=== PATIENT | female | born 1960 | race Caucasian/White ===

== ENCOUNTER → 2016-12-21 | Outpatient (CLI) | payer BC ==
--- NOTE | 2016-12-21 16:13 | US ---
EXAMINATION TYPE: US transvaginal DATE OF EXAM: 12/21/2016 COMPARISON: NONE CLINICAL HISTORY: 56-year-old female N83.292 OVARIAN CYST LEFT. Hx of ovarian cyst. Patient states bl adder not full and wanting the Transvaginal US. Hx of partial hysterectomy. Patient states noticing pain every other month. TECHNIQUE: Multiple transvaginal sonographic images of the pelvis are obtained. FINDINGS: Date of LMP: Uterus removed Right Ovary: 4.1 x 3.5 x 3.7 cm. There seems to be a thin rim of parenchyma around a simple cyst me asuring 40 x 30 x 34 mm. Left Ovary: 1.7 x 1.5 x 1.2 cm with follicular change. Otherwise, no evident adnexal abnormality or cul-de-sac free fluid. IMPRESSION: 1. Status post hysterectomy. 2. A 4.0 cm simple cyst involving the right ovary. Follow-up in 6-8 weeks to reassess. If the finding persists, and the patient is postmenopausal, subsequent surveillance may be indicated.
--- NOTE | 2016-12-22 10:14 | ECHOF ---
Referral Reason:R00.2 PALPITATIONS I34.1 NON MITRIAL VALVE MEASUREMENTS -------- HEIGHT: 157.5 cm WEIGHT: 92.5 kg BP: RVIDd: 2.4 cm (< 3.3) IVSd: 0.8 cm (0.6 - 1.1) LVIDd: 4.1 cm (3.9 - 5.3) LVPWd: 0.9 cm (0.6 - 1.1) IVSs: 1.1 cm LVIDs: 3.7 cm LVPWs: 0.9 cm LA Diam: 2.8 cm (2.7 - 3.8) LAESV Index (A-L): 20.83 ml/m Ao Diam: 3.0 cm (2.0 - 3.7) AV Cusp: 2.0 cm (1.5 - 2.6) LA Diam: 3.2 cm (2.7 - 3.8) MV EXCURSION: 18.221 mm (> 18.000) MV EF SLOPE: 80 mm/s (70 - 150) EPSS: 0.6 cm MV E Lg: 0.58 m/s MV DecT: 252 ms MV A Lg: 0.78 m/s MV E/A Ratio: 0.74 RAP: 5.00 mmHg RVSP: 12.72 mmHg FINDINGS -------- Sinus rhythm. This was a technically adequate study. LV size, wall thickness and systolic function are normal, with an EF greater than 55%. The right ventricle is normal in size. Normal LA size by volume 22+/-6 ml/m2. The right atrial size is normal. The aortic valve is trileaflet, and appears structurally normal. No aortic stenosis or regurgitation. Mild mitral regurgitation is present. Mild prolapse of the anterior mitral valve leaflet. Mild tricuspid regurgitation present. There is no evidence of pulmonary hypertension. The right ventricular systolic pressure, as measured by Doppler, is 12.72mmHg. There is no pulmonic regurgitation present. The aortic root size is normal. There is no pericardial effusion. CONCLUSIONS -------- 1. LV size, wall thickness and systolic function are normal, with an EF greater than 55%. 2. There is no pericardial effusion. 3. The aortic valve is trileaflet, and appears structurally normal. No aortic stenosis or regurgitation. 4. Mild mitral regurgitation is present. 5. Mild prolapse of the anterior mitral valve leaflet. 6. Mild tricuspid regurgitation present. 7. There is no evidence of pulmonary hypertension. 8. The right ventricular systolic pressure, as measured by Doppler, is 12.72mmHg. 9. There is no pulmonic regurgitation present. 10. The aortic root size is normal. ULTRASONIC WELDING MACHINE OPERATOR: Josefa Joshi RDCS
--- NOTE | 2016-12-22 10:28 | MM ---
Reason for exam: screening (asymptomatic). Last mammogram was performed 1 year and 3 months ago. History: Patient is postmenopausal, history of other cancer, and is nulliparous. Took hormonal contraceptives for 15 years. Took progesterone for 5 years. Physical Findings: A clinical breast exam by your physician is recommended on an annual basis and results should be correlated with mammographic findings. MG 3D Screening Mammo W/Cad Bilateral CC and MLO view(s) were taken. Prior study comparison: September 30, 2015, bilateral MG 3d screening mammo w/cad. September 23, 2014, bilateral MG screening mammo w CAD. The breast tissue is heterogeneously dense. This may lower the sensitivity of mammography. No suspicious abnormality. No significant changes when compared with prior studies. ASSESSMENT: Negative, BI-RAD 1 RECOMMENDATION: Routine screening mammogram of both breasts in 1 year.
== END | disposition home or self-care (01) ==
LOC: RADMAMWWP 13:37
PROVIDERS: ATTEND Family Medicine
DX: Z12.31 Encounter for screening mammogram for malignant neoplasm of breast (principal); N83.201 Unspecified ovarian cyst, right side; I08.8 Other rheumatic multiple valve diseases; R00.2 Palpitations; Z90.710 Acquired absence of both cervix and uterus
CPT/HCPCS: 93306; 77063; 76830; G0202

== ENCOUNTER → 2017-06-12 | Outpatient (CLI) | payer BC ==
--- NOTE | 2017-06-12 11:52 | ECHOS ---
STRESS ECHOCARDIOGRAM DATE OF SERVICE: 06/12/2017 INDICATIONS: Chest pain. MEDICATIONS: Celexa, Adderall, omeprazole. BASELINE HEART RATE: 85 BASELINE BLOOD PRESSURE: 122/55 MAXIMUM HEART RATE: 168 MAXIMUM BLOOD PRESSURE: 186/45 85% MPHR: 140 100% MPHR: 165 METS: 7.1 MAXIMUM STAGE REACHED: III TOTAL EXERCISE TIME: 6:30 CLINICAL INFORMATION: History of recurrent chest discomfort and palpitations. She underwent exercise stress echo to maximum capacity. Baseline heart rate 85 beats per minute. Baseline blood pressure 122/55 mmHg. Baseline 12-lead ECG shows normal sinus rhythm with normal cardiac intervals, normal ST segments. The patient exercised on a [place] protocol for only 6 minutes 30 seconds achieving a peak heart rate of 168 beats per minute. Normal blood pressure response to exercise. With exercise there was a [address] depression inferolaterally at peak exercise, associated shortness of breath. The baseline 2-D echo showed normal LV size and systolic function without segmental wall motion abnormalities. At peak exercise, there was a subtle inferior basal hypokinesis noted that resolved with recovery. IMPRESSION: 1. Abnormal stress test with possible inferior wall hypokinesis associated with ST- segment changes described above. 2. Post exercise, there was no worsening of mitral regurgitation and right ventricular systolic pressure was within normal limits. IMPRESSION: Abnormal stress test with evidence of ischemia. Suggest further workup for coronary artery disease. MMODL / IJN: [id number] /
== END | disposition home or self-care (01) ==
LOC: RADNMMAIN 09:57
PROVIDERS: ATTEND Internal Medicine Clinical Cardiac Electrophysiology
DX: R94.39 Abnormal result of other cardiovascular function study (principal); R07.9 Chest pain, unspecified
CPT/HCPCS: 93017; 93350

== ENCOUNTER → 2017-07-11 | Outpatient (CLI) | payer BC ==
[2017-07-11 14:56] LABS: HCT 41.6 % (34.0-46.0); MCH 29.5 pg (25.0-35.0); MCHC 33.6 g/dL (31.0-37.0); MCV 87.8 fL (80.0-100.0); Mean Platelet Volume 7.2; Platelet Count 283 k/uL (150-450); RBC 4.74 m/uL (3.80-5.40); RDW 13.1 % (11.5-15.5)
[2017-07-11 15:07] LABS: Anion Gap 10 mmol/L; Blood Urea Nitrogen 10 mg/dL (7-17); Carbon Dioxide 27 mmol/L (22-30); Chloride 105 mmol/L (98-107); Potassium 4.1 mmol/L (3.5-5.1); Sodium 142 mmol/L (137-145)
== END ==
LOC: LABPAT 14:41
PROVIDERS: ATTEND Internal Medicine Interventional Cardiology
DX: Z01.812 Encounter for preprocedural laboratory examination (principal); R94.30 Abnormal result of cardiovascular function study, unspecified
CPT/HCPCS: 36415; 80051; 82565; 84520; 85027

== ENCOUNTER 2017-07-17 06:35 | Day surgery (SDC) | payer BC ==
[2017-07-14 08:49] VITALS: BMI 36.0
[~2017-07-17 06:35] MED LIST: ALPRAZolam 0.5 MG TAB PO PRN; ASPIRIN 325 MG TAB PO ONE; NITROGLYCERIN SL TABS 0.4 MG TAB SUBLINGUAL PRN; SODIUM CHLORIDE 0.9% 1,000 ML in EMPTY BAG 1 BAG IV ONE
[2017-07-17] MEDS ORDERED: IV FLUID CONTINUATION 1,000 ML IV ONE (07:13)
[2017-07-17] MEDS ORDERED: LIDOCAINE 2% INJ 20 MG/ML (20 ML MDV) ONE ×2 (07:15→07:50)
[2017-07-17] MEDS ORDERED: VERAPAMIL 2.5 MG/ML 2 ML AMP ONE ×2 (07:16→07:50)
[2017-07-17 07:18] VITALS: PULSE 84; TEMP 98.7
[2017-07-17] MEDS ORDERED: fentaNYL (PF) 50 MCG/ML 2 ML AMP IV ONE (07:20)
[2017-07-17] MEDS ORDERED: fentaNYL (PF) 50 MCG/ML 2 ML AMP ONE (07:26)
[2017-07-17] MEDS ORDERED: LIDOCAINE 2% INJ 20 MG/ML SQ ONE (08:01)
[2017-07-17] MEDS ORDERED: VERAPAMIL SYRINGE (5 MG/10 ML) INTRAARTER ONE (08:03)
[2017-07-17] MEDS ORDERED: HEPARIN SODIUM 1,000 UN/ML (10ML VL) ONE (08:09)
[2017-07-17] MEDS ORDERED: HEPARIN SODIUM 1,000 UN/ML (10ML VL) IV ONE (08:13)
[2017-07-17] MEDS ORDERED: IOPAMIDOL-370 125ML BTL INJ ONE (08:15)
[2017-07-17] MEDS ORDERED: RX INFO: IV CONTRAST WAS GIVEN 1 EACH MISC MISCELLANE PRN (08:25)
[2017-07-17] MEDS ORDERED: NON-FORMULARY DRUG (Dextroamphetamine/Amphetamine [Adderall] 20 MG) PO PRN (08:26)
[2017-07-17] MEDS ORDERED: SODIUM CHLORIDE 0.9% 1,000 ML IV SCH (08:30)
--- NOTE | 2017-07-17 08:53 | CC ---
CARDIAC CATHETERIZATION REPORT Mrs. Maldonado is 57-year-old female who has been followed by Dr. Cesar, has been having episode of chest discomfort, underwent a stress echocardiogram revealed inferobasal hypokinesis as well as EKG changes. In view of that, recommendation was made regarding cardiac catheterization. The procedure as well as the risks and the complications were discussed with the patient who is in full understanding and agreement. PROCEDURE: Patient was brought to dairy laboratory technician in a fasting semi-sedated state after receiving fentanyl and Benadryl and achieving moderate conscious sedated state. Using Xylocaine anesthesia in the Seldinger technique, a 6-Marshallese sheath was introduced in the right radial artery. Selective right and left coronary angiography performed using 5-Marshallese 3.5 bend right and left Lakeisha catheters. Multiple views of the coronary artery including hemiaxial views obtained. Following that, 5-Marshallese tight pigtail catheter was introduced in the left ventricle and a 30-degree FLOR view of the left ventricle was obtained. Following that, catheter and sheaths were removed. Hemostasis was obtained with deployment of a TR band. There was no immediate complication. The patient was returned to her room in stable condition. Of note, the patient received 5000 units of intravenous heparin as well as intra-arterial verapamil. FINDINGS: LEFT MAIN: This is a large-sized vessel bifurcating in left circumflex and left anterior descending artery. Left main coronary artery has no evidence of high-grade stenosis. LEFT ANTERIOR DESCENDING ARTERY: This is a large-sized vessel reaching towards the apex with a wrap around apex segment. The left anterior descending artery as well as branches have no evidence of significant obstructive coronary artery disease. LEFT CIRCUMFLEX: This is a nondominant vessel giving rise to 2 large obtuse marginal branches. The left circumflex as well as branches have no evidence of obstructive coronary artery disease. RIGHT CORONARY ARTERY: This is a large dominant vessel bifurcating distally PDA, posterolateral segment and branches. The right coronary artery as well as branches have no evidence of obstructive coronary artery disease. LEFT VENTRICULOGRAM: Left ventriculogram was performed in 30-degree FLOR view and revealed normal left ventricular size and systolic function. Ejection fraction 60%. There was no significant mitral regurgitation. HEMODYNAMICS: There was no gradient across the aortic valve. The left ventricular end- diastolic pressure was 8 to 10 mmHg. CONCLUSION: 1. Normal coronary arteries. 2. Normal left ventricular size and systolic function. DURATION OF PROCEDURE: 26 minutes. MMODL / IJN: [id number] /
[2017-07-17 09:10] VITALS: RESP 20
[2017-07-17 13:39] VITALS: BP 125/57
[2017-07-17] MEDS ORDERED: CITALOPRAM HYDROBROMIDE 20 MG TAB PO SCH (21:00)
[2017-07-17] MEDS ORDERED: PANTOPRAZOLE 40 MG TABLET PO SCH (21:00)
[2017-07-18] MEDS ORDERED: ASPIRIN 81 MG PO SCH (09:00)
== END 2017-07-17 13:30 | disposition home or self-care (01) ==
LOC: CATHCVL 06:35
PROVIDERS: ATTEND Internal Medicine Interventional Cardiology
DX: R94.39 Abnormal result of other cardiovascular function study (principal); R07.89 Other chest pain; I34.1 Nonrheumatic mitral (valve) prolapse; Z82.49 Family history of ischemic heart disease and other diseases of the circulatory system; Z79.82 Long term (current) use of aspirin; Z79.899 Other long term (current) drug therapy
CPT/HCPCS: 93458; C1894; C1769; J2001; J3010; J1644; Q9967

== ENCOUNTER → 2018-02-21 | Outpatient (CLI) | payer BC ==
--- NOTE | 2018-02-21 11:52 | MM ---
Reason for exam: additional evaluation requested from prior study. Last mammogram was performed 1 year and 2 months ago. History: Patient is postmenopausal, history of other cancer, and is nulliparous. Took hormonal contraceptives for 15 years. Took progesterone for 5 years. Physical Findings: Nurse did not find any significant physical abnormalities on exam. MG 3D Diag Mammo W/Cad CALLIE Bilateral CC and MLO view(s) were taken. Prior study comparison: December 21, 2016, bilateral MG 3d screening mammo w/cad. September 30, 2015, bilateral MG 3d screening mammo w/cad. Asymmetric breast tissue greater in the left breast, appears mammographically stable. There is a distortion left lower outer quadrant. There is a distortion right anterior CC view. These disperse on compression. These results were verbally communicated with the patient and result sheet given to the patient on 02/21/18. ASSESSMENT: Probably benign, BI-RAD 3 RECOMMENDATION: Follow-up diagnostic mammogram of both breasts in 6 months.
== END ==
LOC: RADMAMWWP 09:00
PROVIDERS: ATTEND Family Medicine
DX: N64.59 Other signs and symptoms in breast (principal)
CPT/HCPCS: 77062; 77066

== ENCOUNTER → 2019-02-22 | Outpatient (CLI) | payer BC ==
--- NOTE | 2019-02-22 10:39 | MM ---
Reason for exam: additional evaluation requested from prior study. Last mammogram was performed 1 year ago. History: Patient is postmenopausal, history of other cancer, and is nulliparous. Took hormonal contraceptives for 15 years. Took progesterone for 5 years. Physical Findings: Nurse did not find any significant physical abnormalities on exam. MG 3D Diag Mammo W/Cad CALLIE Bilateral CC and MLO view(s) were taken. Prior study comparison: February 21, 2018, bilateral MG 3d diag mammo w/cad [facility]IE. December 21, 2016, bilateral MG 3d screening mammo w/cad. The breast tissue is heterogeneously dense. This may lower the sensitivity of mammography. Left central anterior depth asymmetry on CC is less dense that on the exam of 2013. Similar to recent priors. These results were verbally communicated with the patient and result sheet given to the patient on 02/22/19. ASSESSMENT: Benign, BI-RAD 2 RECOMMENDATION: Routine screening mammogram of both breasts in 1 year.
== END | disposition home or self-care (01) ==
LOC: RADMAMWWP 09:36
PROVIDERS: ATTEND Family Medicine
DX: N64.59 Other signs and symptoms in breast (principal)
CPT/HCPCS: 77062; 77066

== ENCOUNTER → 2019-12-06 | Outpatient (CLI) | payer BC | END | disposition home or self-care (01) | LOC: LABWHC1 10:14 | PROVIDERS: ATTEND Family Medicine | DX: J02.9 Acute pharyngitis, unspecified (principal); R05 Cough; R51 Headache | CPT/HCPCS: 87081; 87430; U0003; C9803 ==

== ENCOUNTER → 2020-08-26 | Outpatient (CLI) | payer MEDICAID ==
--- NOTE | 2020-08-27 07:32 | BD ---
EXAMINATION TYPE: Axial Bone Density DATE OF EXAM: 08/26/2020 COMPARISON: NONE CLINICAL HISTORY: Postmenopausal female. Height: 5 FT 3 IN Weight: 185 FRAX RISK QUESTIONS: Alcohol (3 or more units per day): NO Family History (Parent hip fracture): NO Glucocorticoids (More than 3mos): NO (Ex: prednisone, prednisolone, methylprednisolone, dexamethasone, and hydrocortisone). History of Fracture in Adulthood: YES Secondary Osteoporosis: 1. Type 1 Diabetes: NO 2. Hyperthyroidism: NO 3. Menopause before 45: NO 4. Malnutrition: NO 5. Chronic liver disease: NO Rheumatoid Arthritis: NO Current Tobacco Use: NO RISK FACTORS HISTORY OF: Surgery to Spine/Hip(right/left)/Wrist (right/left): NO Family History of Osteoporosis: NO Active: YES Diet low in dairy products/other sources of calcium: NO Postmenopausal woman: PART HYST AGE 36 NO SYMPTOMS Take estrogen and/or progesterone medications: NO Lost more than 2 inches in height since high school: NO MEDICATIONS: Additional Medications: CELEXA, OMEPRAZOLE Additional History: EXAM MEASUREMENTS: Bone mineral densitometry was performed using the Dmailer System. Bone mineral density as measured about the Lumbar spine is: ----- L1-L4(G/cm2): 0.994 T Score Values are as follows: ----- L2: -1.9 ----- L3: -1.4 ----- L4: -1.4 ----- L1-L4: -1.5 BASELINE Bone mineral density about the R hip (g/cm2): 0.832 Bone mineral density about the L hip (g/cm2): 0.781 T Score values are as follows: -----R Neck: -1.5 -----L Neck: -1.8 -----R Total: -0.8 -----L Total: -1.0 BASELINE IMPRESSION: Osteopenia (T Score between -2.5 and -1). There is slightly increased risk of fracture and the patient may be considered for treatment. Re-Screen 2-5 years. NOTE: T-SCORE=SD OF THE YOUNG ADULT MEAN.
--- NOTE | 2020-08-28 10:44 | MM ---
Reason for exam: screening (asymptomatic). Last mammogram was performed 1 year and 6 months ago. History: Patient is postmenopausal, history of other cancer, and is nulliparous. Took hormonal contraceptives for 15 years. Took progesterone for 5 years. Physical Findings: A clinical breast exam by your physician is recommended on an annual basis and results should be correlated with mammographic findings. MG 3D Screening Mammo W/Cad Bilateral CC and MLO view(s) were taken. Prior study comparison: February 22, 2019, bilateral MG 3d diag mammo w/cad CALLIE. February 21, 2018, bilateral MG 3d diag mammo w/cad CALLIE. There are scattered fibroglandular densities. No significant changes when compared with prior studies. ASSESSMENT: Benign, BI-RAD 2 RECOMMENDATION: Routine screening mammogram of both breasts in 1 year.
== END | disposition home or self-care (01) ==
LOC: RADMAMWWP 14:10
PROVIDERS: ATTEND Family Medicine
DX: Z12.31 Encounter for screening mammogram for malignant neoplasm of breast (principal); Z78.0 Asymptomatic menopausal state; M85.80 Other specified disorders of bone density and structure, unspecified site
CPT/HCPCS: 77063; 77067; 77080

== ENCOUNTER → 2020-09-09 | Outpatient (CLI) | payer MEDICAID ==
--- NOTE | 2020-09-09 16:12 | XR ---
EXAMINATION TYPE: XR wrist limited RT DATE OF EXAM: 09/09/2020 CLINICAL HISTORY: No known injury. Pain and swelling for 3 weeks. Low mobility. TECHNIQUE: Frontal and lateral images of the right wrist are obtained. COMPARISON: None FINDINGS: There is no acute fracture/dislocation evident in the right wrist. The joint spaces in th e right wrist appear within normal limits. The overlying soft tissue appears unremarkable. IMPRESSION: There is no acute fracture or dislocation in the right wrist.
== END | disposition home or self-care (01) ==
LOC: RADXRMAIN 13:46
PROVIDERS: ATTEND Physician Assistant Medical
DX: M25.531 Pain in right wrist (principal)

== ENCOUNTER → 2021-01-29 | Outpatient (CLI) | payer MEDICAID, OTHER | END | disposition home or self-care (01) | LOC: LABWHC1 11:54 | PROVIDERS: ATTEND Emergency Medicine | DX: Z20.822 Contact with and (suspected) exposure to COVID-19 (principal) | CPT/HCPCS: 87635 ==

== ENCOUNTER → 2021-02-01 | Outpatient (CLI) | payer MEDICAID, OTHER | END | disposition home or self-care (01) | LOC: LABWHC1 14:19 | PROVIDERS: ATTEND Emergency Medicine | DX: Z20.822 Contact with and (suspected) exposure to COVID-19 (principal) | CPT/HCPCS: 87635 ==

== ENCOUNTER → 2021-10-13 | Outpatient (CLI) | payer MEDICAID ==
--- NOTE | 2021-10-13 13:17 | US ---
EXAMINATION TYPE: US abdomen complete DATE OF EXAM: 10/13/2021 COMPARISON: NONE CLINICAL HISTORY: 61-year-old female LUQ PAIN R10.12, EPIGASTRIC PAIN R10.13. Pain after eating per patient. TECHNIQUE: Multiple sonographic images of the abdomen are obtained. FINDINGS: EXAM MEASUREMENTS: Liver Length: 17.3 cm Gallbladder Wall: 0.2 cm CBD: 0.3 cm Spleen: 9.8 cm Right Kidney: 9.8 x 5.1 x 3.8 cm Left Kidney: 9.3 x 4.9 x 5.0 cm Pancreas: The tip of the pancreatic tail is obscured by bowel gas shadowing. Visualized portions wit hin normal limits. Liver: Borderline enlarged. No focal lesion is overall homogeneous appearance. Gallbladder: Gallbladder is packed with calculi. No apparent wall thickening, hydropic change, or russell rrounding fluid. Extensive shadowing limiting assessment. Evidence for sonographic Min's sign: neg CBD: wnl Spleen: wnl Right Kidney: Superior medial anechoic lesion containing some debris and measuring 1.5 x 1.6 x 1.6 c m Left Kidney: lateral inferior anechoic lesion = 1.8 x 1.4 x 1.4 cm. Possible 1.2 cm mural based nodu le, patient 78 of 80. Upper IVC: wnl Abd Aorta: No AAA visualized, limited distal Aorta due to overlying bowel gas IMPRESSION: 1. Extensive cholelithiasis with numerous stones packing the lumen of the gallbladder. 2. No biliary ductal dilatation. 3. A complicated or complex cyst, one within either kidney, measuring 1.6 cm on the right and 1.8 cm on the left. 3-6 month follow-up ultrasound recommended to reassess.
== END | disposition home or self-care (01) ==
LOC: RADUSWWP 07:02
PROVIDERS: ATTEND Family Medicine
DX: K80.20 Calculus of gallbladder without cholecystitis without obstruction (principal)
CPT/HCPCS: 76700

== ENCOUNTER → 2021-12-01 | Outpatient (CLI) | payer MEDICAID ==
--- NOTE | 2021-12-02 20:20 | MM ---
Reason for Exam: Screening (asymptomatic). Last mammogram was performed 1 year(s) and 3 month(s) ago. Patient History: Menarche at age 14. Patient has no children. Hysterectomy at age 44. Postmenopausal. Other cancer. Previous DCIS pathology result. Patient used Progesterone for 5 years. Patient used Hormonal Contraceptives for 15 years. Prior Study Comparison: 02/21/2018 Bilateral Diagnostic Mammogram, [facility]. 02/22/2019 Bilateral Diagnostic Mammogram, [facility]. 08/26/2020 Bilateral Screening Mammogram, [facility]. Tissue Density: There are scattered fibroglandular densities. Findings: Analyzed By CAD. There is no suspicious group of microcalcifications or new suspicious mass in either breast. Overall Assessment: Negative, BI-RAD 1 Management: Screening Mammogram of both breasts in 1 year. 1. Patient should continue monthly self breast exams. 2. A clinical breast exam by your physician is recommended on an annual basis. 3. This exam should not preclude additional follow-up of suspicious palpable abnormalities. Electronically signed and approved by: Cintia Au M.D. Radiologist
== END | disposition home or self-care (01) ==
LOC: RADMAMWWP 09:14
PROVIDERS: ATTEND Family Medicine
DX: Z12.31 Encounter for screening mammogram for malignant neoplasm of breast (principal); Z78.0 Asymptomatic menopausal state; Z85.89 Personal history of malignant neoplasm of other organs and systems
CPT/HCPCS: 77063; 77067

== ENCOUNTER 2022-01-10 12:18 | Day surgery (SDC) | payer MEDICAID ==
[~2022-01-10 12:18] MED LIST changes: +ACETAMINOPHEN TAB 500 MG TAB PO PRN; -ALPRAZolam 0.5 MG TAB PO PRN; -ASPIRIN 325 MG TAB PO ONE; +HEPARIN SODIUM,PORCINE/PF 5,000 UNIT/0.5 ML SYRINGE SQ PRN; -NITROGLYCERIN SL TABS 0.4 MG TAB SUBLINGUAL PRN; -SODIUM CHLORIDE 0.9% 1,000 ML in EMPTY BAG 1 BAG IV ONE
[2022-01-10] MEDS ORDERED: LACTATED RINGERS 1,000 ML IV ONE ×3 (12:54→17:03)
[2022-01-10] MEDS ORDERED: ONDANSETRON 4 MG/2 ML VIAL ONE (12:56)
[2022-01-10] MEDS ORDERED: ONDANSETRON 4 MG/2 ML VIAL IVP ONE (13:06)
[2022-01-10] MEDS ORDERED: DEXAMETHASONE SOD PHOSPHATE 4 MG/ML 1 ML VIAL IVP ONE (13:06)
[2022-01-10] MEDS ORDERED: SCOPOLAMINE 1 MG/72 HR PATCH TRANSDERM ONE (13:06)
[2022-01-10] MEDS ORDERED: MIDAZOLAM 2 MG/2 ML VIAL ONE (13:47)
[2022-01-10] MEDS ORDERED: NEOSTIGMINE 1 MG/ML 10 ML VIAL ONE (13:47)
[2022-01-10] MEDS ORDERED: ROCURONIUM 10 MG/ML (5 ML VIAL) IV ONE (13:47)
[2022-01-10] MEDS ORDERED: fentaNYL (PF) 50 MCG/ML 2 ML AMP ONE (13:47)
[2022-01-10] MEDS ORDERED: PROPOFOL 10 MG/ML 20 ML VIAL IV ONE (13:47)
[2022-01-10] MEDS ORDERED: LIDOCAINE 2% INJ 20 MG/ML (2 ML VIAL) ONE (13:47)
[2022-01-10] MEDS ORDERED: SUCCINYLCHOLINE CHLORIDE 200 MG/10 ML VIAL IV ONE (13:47)
[2022-01-10] MEDS ORDERED: GLYCOPYRROLATE 0.2 MG/ML 2 ML VIAL ONE (13:47)
[2022-01-10] MEDS ORDERED: BUPIVACAINE (PF) 0.25% 30 ML VIAL SQ ONE (13:50)
--- NOTE | 2022-01-10 15:35 | P.OP ---
Date of Procedure: 01/10/22 Procedure(s) Performed: PREOPERATIVE DIAGNOSIS: Chronic cholecystitis POSTOPERATIVE DIAGNOSIS: Same PROCEDURE: Laparoscopic cholecystectomy SURGEON: Eldon EBL: Minimal see anesthesia record ANESTHESIA: Gen. COMPLICATIONS: None OPERATIVE PROCEDURE: The patient was brought and placed on the operating room table in the supine position. The patient was placed under general anesthesia at that time. The abdomen was prepped and draped in the usual sterile fashion. A small vertical infraumbilical incision was made. The fascia was grasped with the Paco forceps. The fascia was retracted anteriorly. The Veress needle was advanced into the peritoneal cavity. The saline drop test was normal. Insufflation took place up to 15 mmHg. A 5 mm optical trocar was advanced and the peritoneal cavity. 2 additional 5 mm trochars were placed in the right upper quadrant under direct visualization. A 12 mm trocar was advanced into the epigastric incision site. The gallbladder had evidence of chronic inflammatory changes particularly in the mid aspect of the gallbladder and the fundus. The gallbladder was retracted superiorly and laterally. The peritoneum overlying the infundibulum was bluntly dissected. The patient's cystic duct was visualized. The junction between the cystic duct common and hepatic duct was identified. The critical view of safety was achieved after blunt dissection. The cystic duct was then divided after placement of 3 12 mm clips on the patient's side and one on the specimen side. The cystic artery was identified and clipped as well. A small vessel was seen along the gallbladder fossa and clipped as well. The gallbladder was then removed from the liver bed using delores ctrocautery. The gallbladder was then removed from the epigastric trocar site with an Endo Catch bag. The epigastric incision site was lengthened in order to remove the gallbladder given its large size with multiple stones. The gallbladder fossa was irrigated with saline. There was no evidence of any bleeding or biliary drainage seen. The fascia at the 12 millimeter site was closed using a Tanaon 0 Vicryl stitch. The trochars were then removed. The skin at all 4 sites was closed using a 4-0 Monocryl stitch. Skin glue was utilized on the incision sites. At the end of this procedure the sponge and needle counts were correct. DISPOSITION: Stable to the recovery room
[2022-01-10 15:37] VITALS: TEMP 96.9
[2022-01-10] MEDS ORDERED: ACETAMINOPHEN TAB 325 MG TAB PO SCH (15:45)
[2022-01-10] MEDS ORDERED: HYDROmorphone 0.5 MG/0.5 ML SYRINGE IVP ONE ×3 (16:09→16:37)
[2022-01-10 18:06] VITALS: BP 116/59; PULSE 77; RESP 16
[2022-01-10] MEDS ORDERED: IBUPROFEN 600 MG TAB PO SCH (18:45)
== END 2022-01-10 18:28 | disposition home or self-care (01) ==
LOC: OR 12:18
PROVIDERS: ATTEND Surgery
DX: K81.1 Chronic cholecystitis (principal); I34.1 Nonrheumatic mitral (valve) prolapse; K21.9 Gastro-esophageal reflux disease without esophagitis; Z90.410 Acquired total absence of pancreas; Z79.899 Other long term (current) drug therapy
CPT/HCPCS: 47562; J2250; J0330; J1100; J2710; J0690; J2405; J3010; J2704; J1170; J1644; J2001; 88304

== ENCOUNTER → 2022-04-08 | Outpatient (CLI) | payer MEDICAID ==
--- NOTE | 2022-04-08 13:04 | US ---
EXAMINATION TYPE: US kidneys/renal and bladder DATE OF EXAM: 04/08/2022 COMPARISON: US CLINICAL HISTORY: N28.1 CYST OF KIDNEY, ACQUIRED. F/U prior EXAM MEASUREMENTS: Right Kidney: 9.5 x 4.5 x 5.2 cm Left Kidney: 9.7 x 5.0 x 4.1 cm Right Kidney: No evidence of hydro, probable renal calculi lateral/mid= 0.9 x 1.0 cm/ Cyst medial as visualized on prior= 1.8 x 1.3 x 1.6 cm Left Kidney: Cyst mid/lateral= 1.7 x 1.4 x 1.4 cm/ possible hyperechoic nonshadowing calculi lateral adjacent to cyst= 0.9 x 0.7 x 0.7 cm Bladder: wnl Bilateral Jets seen: Yes IMPRESSION: 1. Suggestion of bilateral nonobstructing renal stones. 2. Bilateral renal cysts.
== END | disposition home or self-care (01) ==
LOC: RADUSWWP 12:11
PROVIDERS: ATTEND Family Medicine
DX: N20.0 Calculus of kidney (principal); N28.1 Cyst of kidney, acquired
CPT/HCPCS: 76770

== ENCOUNTER → 2023-04-12 | Outpatient (CLI) | payer MEDICAID ==
--- NOTE | 2023-04-13 12:04 | US ---
EXAMINATION TYPE: US kidneys/renal and bladder DATE OF EXAM: 04/12/2023 COMPARISON: US 04/08/2022 CLINICAL INDICATION: Female, 63 years old with history of N28.1 CYST OF KIDNEY, ACQUIRED; Renal cyst. EXAM MEASUREMENTS: Right Kidney: 9.7 x 5.9 x 4.2 cm Left Kidney: 11.1 x 5.7 x 6.3 cm Right Kidney: * No hydronephrosis. * 9 mm echogenic focus of the midpole likely nonobstructive calculus. * Hypoechoic cortical lesion at the lower pole measuring 1.5 x 1.3 x 1.2 cm. * Cortical cyst upper pole: 2.1 x 1.9 x 1.8 cm. Left Kidney: * Hyperechoic focus with shadowing seen mid to lower pole measuring 1.1 x 1.3 x 0.6 cm. * No hydronephrosis. Bladder: Appears wnl There is a 5.6 x 4.4 x 4.5 cm cyst to the right of the bladder. Bilateral Jets seen: Yes IMPRESSION: 1. No hydronephrosis. 2. A renal stone on either side measuring up to 1.3 cm. 3. Possible hypoechoic cortical lesion at the right kidney lower pole measuring 1.5 cm. Not seen on . Debris filled cyst is possible. Recommend follow-up ultrasound in 6 months to exclude the p ossibility of a small solid mass. 4. A 5.6 cm cyst located to the right of the bladder. Etiology unclear, possibly of ovarian origin. R ecommend dedicated pelvic ultrasound for further assessment.
== END | disposition home or self-care (01) ==
LOC: RADUSWWP 15:42
PROVIDERS: ATTEND Urology
DX: N28.1 Cyst of kidney, acquired (principal); N20.0 Calculus of kidney
CPT/HCPCS: 76770

== ENCOUNTER → 2023-05-05 | Outpatient (CLI) | payer MEDICAID ==
--- NOTE | 2023-05-08 16:53 | MM ---
Reason for Exam: Screening (asymptomatic). Last mammogram was performed 1 year(s) and 5 month(s) ago. Patient History: Menarche at age 14. Patient has no children. Hysterectomy at age 44. Postmenopausal. Other cancer. Previous DCIS pathology result. Patient used Progesterone for 5 years. Patient used Hormonal Contraceptives for 15 years. Prior Study Comparison: 02/22/2019 Bilateral Diagnostic Mammogram, [facility]. 08/26/2020 Bilateral Screening Mammogram, [facility]. 12/01/2021 Bilateral MG 3D screening mammo w/cad, [facility]. Tissue Density: The breast tissue is heterogeneously dense. This may lower the sensitivity of mammography. Findings: Analyzed By CAD. The pattern is symmetrical. Pattern appears stable. No significant interval changes are evident. No suspicious groups of microcalcifications, spiculated or lobular masses, architectural distortion or other secondary signs of malignancy are mammographically apparent. Overall Assessment: Benign, BI-RAD 2 Management: Screening Mammogram of both breasts in 1 year. A negative mammogram report should not preclude additional follow up of suspicious palpable abnormalities. Patient should continue monthly self breast exam. A clinical breast exam by your physician is recommended on an annual basis and results should be correlated with mammographic findings. Electronically signed and approved by: Rodrick Toney D.O. Radiologis
== END | disposition home or self-care (01) ==
LOC: RADMAMWWP 15:29
PROVIDERS: ATTEND Family Medicine
DX: Z12.31 Encounter for screening mammogram for malignant neoplasm of breast (principal); Z78.0 Asymptomatic menopausal state
CPT/HCPCS: 77063; 77067

== ENCOUNTER → 2023-05-05 | Outpatient (CLI) | payer MEDICAID ==
--- NOTE | 2023-05-06 18:39 | US ---
EXAMINATION TYPE: US transvaginal DATE OF EXAM: 05/05/2023 COMPARISON: 12/21/2016 CLINICAL INDICATION: Female, 63 years old with history of N83.299 OTHER OVARIAN CYST, UNSPECIFIED RAMBO E; Patient states pelvic pressure and right sided pain. Hysterectomy. [id number] TECHNIQUE: Transvaginal (TV). Transvaginal sonographic images were medically necessary to better ass ess the following anatomy: Date of LMP: No menses due to hysterectomy EXAM MEASUREMENTS: Uterus: Surgically absent Endometrial Stripe: Surgically absent Right Ovary: 5.1 x 4.1 x 4.7 cm Left Ovary: 2.5 x 1.8 x 1.5 cm Fish Cake Maker notes: Slightly limited due to overlying bowel. Patient very uncomfortable during e xam 1. Uterus: Surgically absent 2. Endometrium: Surgically absent 3. Right Ovary: There is a 4.0 x 3.9 x 4.2cm anechoic lesion with smooth, well defined hardin. Previo usly seen in 2017 and measured 4.0 x 3.4 x 3.5. 4. Left Ovary: wnl as best visualized 5. Bilateral Adnexa: Obscured by overlying bowel gas 6. Posterior cul-de-sac: wnl IMPRESSION: 1. Status post hysterectomy. 2. Redemonstrated simple cyst of the right ovary currently measuring 4.2 x 4.0 x 3.9 cm (slightly lar kyara from 2017 where it measured 4.0 x 3.5 x 3.4 cm). Ongoing annual ultrasound surveillance recommend ed. A cystic epithelial ovarian neoplasm, probably benign is in the differential.
== END | disposition home or self-care (01) ==
LOC: RADUSWWP 15:31
PROVIDERS: ATTEND Family Medicine
DX: N83.291 Other ovarian cyst, right side (principal); Z90.710 Acquired absence of both cervix and uterus
CPT/HCPCS: 76830

== ENCOUNTER → 2023-05-10 | Outpatient (CLI) | payer MEDICAID | END | disposition home or self-care (01) | LOC: LABWHC1 14:33 | PROVIDERS: ATTEND Obstetrics & Gynecology | DX: Z00.00 Encounter for general adult medical examination without abnormal findings (principal); N83.201 Unspecified ovarian cyst, right side | CPT/HCPCS: 36415 ==

== ENCOUNTER → 2023-06-28 | Outpatient (CLI) | payer MEDICAID ==
--- NOTE | 2023-06-29 13:23 | MR ---
EXAMINATION TYPE: MR brain and iac wo/w con DATE OF EXAM: 06/28/2023 9:17 PM CLINICAL INDICATION:Female, 63 years old with history of H93.12; PHH, Ringing in Left ear, Fall 1-20 21 concussion COMPARISON: None TECHNIQUE: Multi planar, multi sequence imaging was performed through the brain. Specialized thin s equences were obtained through the internal auditory canals. Pre-and post gadolinium sequences were obtained. MR contrast: IV Contrast: 8 cc Gadavist FINDINGS: The fontaine-white junctions, ventricular system, and cisterns appear unremarkable. Minimal scattered f oci of high T2 signal intensity are seen within the periventricular white matter. Midline structures show no abnormality. Diffusion-weighted imaging shows no evidence of restricted diffusion. The suscep tibility weighted images do not reveal any evidence for micro-hemorrhage. The bone marrow signal is within normal limits. Paranasal sinuses and mastoid air cells: Mild scattered paranasal sinus disease. Visualized orbits: Orbital contents are intact. After administration of gadolinium, no abnormal enhancement is seen. The internal auditory canal sequences demonstrate no significant irregularity. The 7th cranial nerve s, 8 cranial nerves, and cerebellar pontine angles appear unremarkable. After the administration lion olinium, no abnormal enhancement is seen within the internal auditory canals. Vascular loop: None. IMPRESSION: 1. No evidence of intracranial mass nor acute/subacute CVA. 2. No evidence of internal auditory canal abnormality. 3. Nonspecific white matter changes, likely secondary to small vessel ischemic disease.
== END | disposition home or self-care (01) ==
LOC: RADMRIMAIN 20:45
PROVIDERS: ATTEND Otolaryngology
DX: H93.12 Tinnitus, left ear (principal); I67.82 Cerebral ischemia
CPT/HCPCS: 70553; A9585

== ENCOUNTER → 2023-07-04 | Outpatient (CLI) | payer MEDICAID ==
--- NOTE | 2023-07-05 14:38 | MR ---
EXAMINATION TYPE: MR kidney wo/w con DATE OF EXAM: 07/04/2023 COMPARISON: Ultrasound kidneys April 12, 2023 HISTORY: Bilateral kidney cysts and stone, Right renal mass, Abnormal U/S, CONTRAST: Standard multiplanar, multisequence MRI departmental protocol images were obtained without contrast a nd with 8.5 mL intravenous Gadobutrol gadolinium contrast. Imaging of the abdomen focusing on the bi lateral kidneys. FINDINGS: Kidneys: Kidneys symmetric and normal in size. There is 2.0 x 1.2 cm simple appearing thin-walled cys t in the left kidney axial image 31. There is 1.7 cm simple appearing thin-walled cyst anteriorly low er pole right kidney image 39. Corresponding to ultrasound there is exophytic round 1.0 cm lesion of T1 hyperintensity and T2 hypointensity laterally from the lower pole of the right kidney without enha ncement consistent with proteinaceous cyst. No hydronephrosis seen bilaterally. No suspicious enhanci ng renal masses bilaterally. Other: There is 4.0 cm thin-walled cyst in the right pelvis coronal image 19 corresponding to simple ovarian cyst on recent pelvic ultrasound. Lung bases are clear. The liver, spleen, pancreas, both adrenal glands are within normal limits. No a bnormal bowel dilatation. No AAA. No intra-abdominal ascites. Osseous structures are intact. IMPRESSION: Small simple appearing thin-walled cysts in both kidneys. There is 1.0 cm exophytic nonen hancing but suspected proteinaceous cyst laterally in the right kidney corresponding to recent ultras ound abnormality.
== END | disposition home or self-care (01) ==
LOC: RADMRIMAIN 16:51
PROVIDERS: ATTEND Urology
DX: D41.01 Neoplasm of uncertain behavior of right kidney (principal); N28.1 Cyst of kidney, acquired
CPT/HCPCS: 74183; A9585

== ENCOUNTER → 2024-07-11 | Outpatient (CLI) | payer MEDICAID ==
--- NOTE | 2024-07-12 07:22 | MM ---
Reason for Exam: Screening (asymptomatic). Last mammogram was performed 1 year(s) and 3 month(s) ago. Patient History: Menarche at age 14. Patient has no children. Hysterectomy at age 44. Postmenopausal. Other cancer. Patient used Progesterone for 5 years. Patient used Hormonal Contraceptives for 15 years. Risk Values: Elizabeth 5 year model risk: 1.7%. NCI Lifetime model risk: 7.7%. Prior Study Comparison: 08/26/2020 Bilateral Screening Mammogram, [facility]. 12/01/2021 Bilateral MG 3D screening mammo w/cad, [facility]. 05/05/2023 Bilateral MG 3D screening mammo w/cad, [facility]. Tissue Density: The breasts are heterogeneously dense, which may obscure small masses. Findings: Analyzed By CAD. There are a few tiny benign-appearing round calcifications bilaterally redemonstrated. Benign-appearing bilateral axillary lymph nodes are again seen. There is no suspicious group of microcalcifications or new suspicious mass in either breast. Overall Assessment: Benign, BI-RAD 2 Management: Screening Mammogram of both breasts in 1 year. . Patient should continue monthly self-breast exams. A clinical breast exam by your physician is recommended on an annual basis. This exam should not preclude additional follow-up of suspicious palpable abnormalities. Note on Elizabeth scores and lifetime risk: 1. A Elizabeth score greater than 3% is considered moderate risk. If this is the case, consider specialist referral to assess eligibility for a risk reducing agent. 2. If overall lifetime risk for the development of breast cancer is 20% or higher, the patient may qualify for future screening with alternating mammogram and breast MRI. [facility], , 07/12/2024 7:19 AM. Electronically signed and approved by: Lance Patterson M.D.
== END | disposition home or self-care (01) ==
LOC: RADMAMWWP 16:40
PROVIDERS: ATTEND Family Medicine
DX: Z12.31 Encounter for screening mammogram for malignant neoplasm of breast (principal); R92.333 Mammographic heterogeneous density, bilateral breasts; Z78.0 Asymptomatic menopausal state; Z92.0 Personal history of contraception
CPT/HCPCS: 77063; 77067